=== PATIENT | female | born 1950 | race Caucasian/White ===

== ENCOUNTER → 2017-02-25 | Outpatient (CLI) | payer BC ==
[2014-05-03 12:50] VITALS: BP 145/81
[~2017-02-25] MED LIST: ALPR0.5T6 PO; FURO20TA3 PO; GUAI1TBM PO; HYDR-2758 PO; ICOS1CAP PO; LAMO100T PO; LANS30CA PO; LEVO75TA5 PO; MECL25TA3 PO; ONDA4TAB10 SL; PERI2TAB2 PO; SIMV20TA3 PO; SUMA100T4 PO; TRAM50TA PO
--- NOTE | 2017-02-25 18:30 | CARD ---
APPROVED REPORT EXAM: Two-dimensional and M-mode echocardiogram with Doppler and color Doppler. Other Information Quality : Good INDICATION Murmur DX SEPTAL DEFECT, AORTIC REGURGITATION 2D DIMENSIONS Left Atrium(2D)3.8 (1.6-4.0cm)IVSd1.1 (0.7-1.1cm) Aortic Root(2D)3.2 (2.0-3.7cm)LVDd5.0 (3.9-5.9cm) LVOT Diameter2.1 (1.8-2.4cm)PWd1.1 (0.7-1.1cm) LVDs3.5 (2.5-4.0cm)FS (%) 29.6 % SV66.6 mlLVEF(%)55.0 (>50%) Aortic Valve AoV Peak Misael.135.3cm/sAoV VTI30.9cm AO Peak GR.7.3mmHgLVOT Peak Misael.124.5cm/s AO Mean GR.4mmHgAVA (VMAX)3.09cm2 ANGELLA (VTI)3.86gs6JF P 1/2 Vdng751rv Mitral Valve MV E Cbazfbzo79.7cm/sMV DECEL [id number] MV A Lmqgqwhb77.6cm/sE/A Ratio0.7 Pulmonary Valve PV Peak Ybebofsg480.4cm/s Tricuspid Valve TR P. Xtdfrcly798cp/sRAP CSAKHOJY4tjVr TR Peak Gr.92hwVqWUZV33wjVk LEFT VENTRICLE The left ventricle is normal size. There is asymmetrical septal hypertrophy present with mild left ve ntricular hypertrophy. Left ventricle systolic function is normal. The Ejection Fraction is 55%. Mild mid anteroseptal bounce noted. Transmitral Doppler flow pattern is Grade I-abnormal relaxation patte rn. RIGHT VENTRICLE The right ventricle is mildly dilated The right ventricular systolic function is normal. ATRIA The left atrium is borderline dilated. The right atrium size is normal. Interatrial septum bows towar d the left atria, possible small PFO present by spectral doppler. AORTIC VALVE The aortic valve is mildly calcified. Doppler and Color Flow revealed mild aortic regurgitation. Ther e is no significant aortic valvular stenosis. MITRAL VALVE The mitral valve is calcified but opens well. There is no evidence of mitral valve prolapse. There is no mitral valve stenosis. Doppler and Color-flow revealed mild mitral regurgitation. TRICUSPID VALVE The tricuspid valve is normal in structure. Doppler and Color Flow revealed mild tricuspid regurgitat ion. There is mild pulmonary hypertension. The PA pressure was estimated at 32 mmHg. There is no tric uspid valve prolapse or vegetation. There is no tricuspid valve stenosis. PULMONIC VALVE The pulmonary valve is normal in structure and function. Doppler and Color Flow revealed no pulmonic valvular regurgitation. There is no pulmonic valvular stenosis. GREAT VESSELS The aortic root is normal in size. The ascending aorta is normal in size. The IVC is normal in size a nd collapses >50% with inspiration. PERICARDIAL EFFUSION There is no pleural effusion. There is no evidence of significant pericardial effusion. Critical Notification Critical Value: No <Conclusion> There is asymmetrical septal hypertrophy present with mild left ventricular hypertrophy. Left ventricle systolic function is normal. The Ejection Fraction is 55%. Transmitral Doppler flow pattern is Grade I-abnormal relaxation pattern. The right ventricle is mildly dilated The left atrium is borderline dilated. The right atrium size is normal. The aortic valve is mildly calcified. Doppler and Color Flow revealed mild aortic regurgitation. Doppler and Color-flow revealed mild mitral regurgitation. The mitral valve is calcified but opens well. Doppler and Color Flow revealed mild tricuspid regurgitation. There is mild pulmonary hypertension. The PA pressure was estimated at 32 mmHg. The pulmonary valve is normal in structure and function. There is no evidence of significant pericardial effusion.
== END | disposition home or self-care (01) ==
LOC: ECHO 10:50
PROVIDERS: ATTEND Internal Medicine Cardiovascular Disease
DX: I08.3 Combined rheumatic disorders of mitral, aortic and tricuspid valves (principal); I27.20 Pulmonary hypertension, unspecified; Q21.9 Congenital malformation of cardiac septum, unspecified
CPT/HCPCS: 93306

== ENCOUNTER → 2017-12-23 | Day surgery (SDC) | payer BC, MEDICARE ==
[~2017-12-23] MED LIST changes: +IV RINGERS,LACTATED 1000ML 1,000 ML IV SCH; +LIDOCAINE 1% PF 2 ML VIAL. ID PRN; +MIDAZOLAM HCL/PF 2 MG/2 ML VIAL. IV PRN; +PROPOFOL 20 ML IV ONE; +fentaNYL PF VIAL 100 MCG/2 ML VIAL IV PRN
--- NOTE | 2017-12-23 08:42 | PDOC1 ---
HISTORY & PHYSICAL H&P Nicolasa Coronel [id number] 1950 12/17/2017 10:10 AM 03/10 [facility], [facility] OUR PATIENTS COME FIRST [address] [place], [place] [id number] Ph. [phone] Patient: Nicolasa Coronel Date of : 1950 Date: 12/17/2017 10:10 AM Visit Type: Consult This 67 year old female presents for H/o colorectal polyp. History of Present Illness: 1. H/o colorectal polyp No prior screening. Denies risk factors. Pertinent negatives include abdominal pain, change in bowel habits, change in stool caliber, constipation, decreased appetite, diarrhea, melena, nausea, rectal bleeding, vomiting, weight gain and weight loss. Additional information: No family history of colon cancer , No family history of Crohn's/colitis, No NSAID/ASA use and Last colonoscopy more then 5 yrs ago. INTAKE COMMENTS: Intake Comments: patient states she is here for a colonoscopy PAST MEDICAL/SURGICAL HISTORY (Detailed) Family History (Detailed) Social History: (Detailed) Tobacco use reviewed. Preferred language is [place]. Tobacco use status: Current non-smoker. Smoking status: Never smoker. SMOKING STATUS Type Smoking Status Usage Per Day Years Used Total Pack Years Never smoker Medications (active prior to today) Medication Name Sig Description Start Date Stop Date Refilled Rx Elsewhere tramadol 50 mg tablet take 1 tablet by oral route every 6 hours as needed // Y furosemide 20 mg tablet take 1 tablet by oral route every day // Y lansoprazole 30 mg capsule,delayed release take 1 capsule by oral route every day before a meal // Y Vascepa 1 gram capsule take 2 capsule by oral route 2 times every day with food swallowing whole. Do not chew, open, dissolve and/or crush. // Y levothyroxine 100 mcg tablet take 1 tablet by oral route every day // Y alprazolam 0.5 mg tablet take 1 tablet by oral route 3 times every day // Y lamotrigine 100 mg tablet take 1 tablet by oral route every day // Y perindopril erbumine 4 mg tablet take 1 tablet by oral route every day // Y Vitamin D3 5,000 unit tablet // Y meclizine 25 mg tablet take 1 tablet by oral route 3 times every day as needed / / Y Fish Oil 1,000 mg (120 mg-180 mg) capsule // Y vitamin B12 1,000 mcg-folic acid 400 mcg sublingual lozenge // Y Calcium 600 600 mg calcium (1,500 mg) tablet // Y Medications (Added, Continued or Stopped today) Start Date Medication Directions PRN Status PRN Reason Instruction Stop Date alprazolam 0.5 mg tablet take 1 tablet by oral route 3 times every day N Calcium 600 600 mg calcium (1,500 mg) tablet N Fish Oil 1,000 mg (120 mg-180 mg) capsule N furosemide 20 mg tablet take 1 tablet by oral route every day N lamotrigine 100 mg tablet take 1 tablet by oral route every day N lansoprazole 30 mg capsule,delayed release take 1 capsule by oral route every day before a meal N levothyroxine 100 mcg tablet take 1 tablet by oral route every day N meclizine 25 mg tablet take 1 tablet by oral route 3 times every day as needed N perindopril erbumine 4 mg tablet take 1 tablet by oral route every day N tramadol 50 mg tablet take 1 tablet by oral route every 6 hours as needed N Vascepa 1 gram capsule take 2 capsule by oral route 2 times every day with food swallowing whole. Do not chew, open, dissolve and/or crush. N vitamin B12 1,000 mcg-folic acid 400 mcg sublingual lozenge N Vitamin D3 5,000 unit tablet N Allergies: Ingredient Reaction (Severity) Medication Name Comment CEPHALEXIN MONOHYDRATE KEFLEX CIPROFLOXACIN Nausea PENICILLINS Review of Systems System Neg/Pos Details Constitutional Negative Chills, Fever, Malaise, Weight gain and Weight loss. ENMT Negative Sore throat. Eyes Negative Double vision. Respiratory Negative Dyspnea and Wheezing. Cardio Negative Chest pain and Irregular heartbeat/palpitations. GI Positive See HPI. GI Negative Abdominal pain, Change in bowel habits, Change in stool caliber, Constipation, Decreased appetite, Diarrhea, Melena, Nausea, See HPI, Rectal bleeding and Vomiting. Negative Dysuria and Hematuria. Endocrine Negative Cold intolerance and Heat intolerance. Psych Negative Anxiety. Integumentary Negative Hives and Rash. MS Negative Joint pain. Darryl/Lymph Negative Easy bleeding and Easy bruising. Allergic/Immuno Negative Food allergies. Vital Signs Time BP mm/Hg Pulse /min Resp /min Temp F Ht ft Ht in Ht cm Wt lb Wt kg BMI kg/ m2 BSA m2 O2 Sat% 9:52 AM 140/90 78 16 98.0 5.0 4.00 162.56 220.60 100.062 37.87 2.13 96 Measured By Time Measured by 9:52 AM Ladonna Swygert PHYSICAL EXAM: Exam Findings Details Constitutional Normal Well developed. Eyes Normal Conjunctiva - Right: Normal, Left: Normal. Sclera - Right: Normal, Left: Normal. Nasopharynx Normal Lips/teeth/gums - Normal. Neck Exam Normal Inspection - Normal. Thyroid gland - Normal. Respiratory Normal Inspection - Normal. Auscultation - Normal. Cardiovascular Normal Regular rate and rhythm. No murmurs, gallops, or rubs. Abdomen Normal Inspection - Normal. Anterior palpation - No guarding. No abdominal tenderness. No hepatic enlargement. No spleen enlargement. No hernia. No Ascites. Skin Normal Inspection - Normal. Extremity Normal No edema. Psychiatric Normal Orientation - Oriented to time, place, person & situation. Appropriate mood and affect. Assessment/Plan # Detail Type Description 1. Assessment History of colon polyps (Z86.010). Patient Plan schedule colonoscopy at [facility] Plan Orders Further diagnostic evaluations ordered today include(s) Colonoscopy , flexible; diagnostic to be performed today. She is to schedule a follow-up visit with Alverto Liu MD upon completion of work-up. Active Patient Care Team Members Name Contact Agency Type Support Role Relationship Active Date Inactive Date Specialty Bradley Graves Patient provider PCP Document Electronically signed: Alverto Liu MD 12/17/2017 12:56 PM Document generated by: Alverto Liu 12/17/2017 Vesta Kurtz MD, Family Practice; Sinan Kenney MD Internal Medicine; Nikia Flannery MD, Internal Medicine; Tila Liu MD Internal Medicine; Alverto Liu MD, Gastroenterology; Jorge Luis Vick MD, Rheumatology, Sheba Michele APRN ------ 12/23/17 Patient seen and examined. No change in H&P. ALVERTO LIU MD Dec 23, 2017 08:42
[2017-12-23 09:22] VITALS: BP 145/60
== END | disposition home or self-care (01) ==
LOC: SURG 08:00
PROVIDERS: ATTEND Internal Medicine Gastroenterology
DX: Z12.11 Encounter for screening for malignant neoplasm of colon (principal); Z86.010 Personal history of colon polyps; Z88.0 Allergy status to penicillin; Z88.1 Allergy status to other antibiotic agents; Z79.899 Other long term (current) drug therapy
CPT/HCPCS: 45378; J2704

== ENCOUNTER → 2019-08-06 | Outpatient (CLI) | payer BC, MEDICARE ==
[2017-12-23 09:22] VITALS: BP 145/60
[~2019-08-06] MED LIST changes: -HYDR-2758 PO; +HYDR-2761 PO; -IV RINGERS,LACTATED 1000ML 1,000 ML IV SCH; -LAMO100T PO; +LAMO100T8 PO; -LIDOCAINE 1% PF 2 ML VIAL. ID PRN; +MECL-75 PO; -MECL25TA3 PO; -MIDAZOLAM HCL/PF 2 MG/2 ML VIAL. IV PRN; -PROPOFOL 20 ML IV ONE; +SIMV20TA18 PO; -SIMV20TA3 PO; -fentaNYL PF VIAL 100 MCG/2 ML VIAL IV PRN
== END | disposition home or self-care (01) ==
LOC: LAB 13:10
PROVIDERS: ATTEND Internal Medicine Gastroenterology
DX: Z01.818 Encounter for other preprocedural examination (principal); Z11.59 Encounter for screening for other viral diseases; Z85.038 Personal history of other malignant neoplasm of large intestine
CPT/HCPCS: C9803; U0003; 36415

== ENCOUNTER → 2019-08-11 | Day surgery (SDC) | payer BC, MEDICARE ==
[~2019-08-11] MED LIST changes: +IV RINGERS,LACTATED 1000ML 1,000 ML IV SCH; +LIDOCAINE 2% PF 5 ML VIAL. ONE; +PROPOFOL 10 MG/ML (20ML) VIAL. IV ONE
[2019-08-11 08:57] VITALS: BP 126/78
== END ==
LOC: ENDOS 07:18
PROVIDERS: ATTEND Internal Medicine Gastroenterology
DX: Z12.11 Encounter for screening for malignant neoplasm of colon (principal); K64.0 First degree hemorrhoids; K63.89 Other specified diseases of intestine; F41.9 Anxiety disorder, unspecified; F32.9 Major depressive disorder, single episode, unspecified; E78.00 Pure hypercholesterolemia, unspecified; I10 Essential (primary) hypertension; E03.9 Hypothyroidism, unspecified; Z86.010 Personal history of colon polyps; Z85.038 Personal history of other malignant neoplasm of large intestine; Z87.39 Personal history of other diseases of the musculoskeletal system and connective tissue; Z88.6 Allergy status to analgesic agent; Z88.1 Allergy status to other antibiotic agents; Z88.3 Allergy status to other anti-infective agents; Z88.0 Allergy status to penicillin; Z88.8 Allergy status to other drugs, medicaments and biological substances; Z98.0 Intestinal bypass and anastomosis status
CPT/HCPCS: 45378; J2704; J3490